=== PATIENT | female | born 1960 | race Caucasian/White ===

== ENCOUNTER → 2016-05-01 | Outpatient (CLI) | payer BC ==
[2006-03-06 07:39] VITALS: TEMP 98.4
[~2016-05-01] MED LIST: ASPIR-LOW81 MG PO; LIPITOR20 MG PO
== END ==
LOC: MC.RAD 11:17
DX: Z12.31 Encounter for screening mammogram for malignant neoplasm of breast (principal)

== ENCOUNTER → 2016-07-22 | Outpatient (CLI) | payer BC ==
[2006-03-06 07:39] VITALS: TEMP 98.4
== END ==
LOC: COL.RAD 13:18
DX: M25.551 Pain in right hip (principal); S43.431A Superior glenoid labrum lesion of right shoulder, initial encounter
CPT/HCPCS: A9585; Q9967

== ENCOUNTER → 2017-10-22 | Outpatient (CLI) | payer BC ==
[2006-03-06 07:39] VITALS: TEMP 98.4
== END ==
LOC: MC.RAD 15:51
DX: Z12.31 Encounter for screening mammogram for malignant neoplasm of breast (principal)

== ENCOUNTER → 2018-10-25 | Outpatient (CLI) | payer BC ==
[2006-03-06 07:39] VITALS: TEMP 98.4
== END ==
LOC: MC.RAD 11:30
DX: Z12.31 Encounter for screening mammogram for malignant neoplasm of breast (principal)

== ENCOUNTER → 2019-10-27 | Outpatient (CLI) | payer BC ==
[2006-03-06 07:39] VITALS: TEMP 98.4
== END ==
LOC: MC.RAD 11:35
DX: Z12.31 Encounter for screening mammogram for malignant neoplasm of breast (principal); N63.10 Unspecified lump in the right breast, unspecified quadrant

== ENCOUNTER → 2019-11-01 | Outpatient (CLI) | payer BC ==
[2006-03-06 07:39] VITALS: TEMP 98.4
== END ==
LOC: MC.RAD 14:22
DX: N60.01 Solitary cyst of right breast (principal)

== ENCOUNTER → 2020-12-18 | Outpatient (CLI) | payer BC ==
[2006-03-06 07:39] VITALS: TEMP 98.4
== END ==
LOC: MC.RAD 07:45
DX: Z12.31 Encounter for screening mammogram for malignant neoplasm of breast (principal)

== ENCOUNTER 2022-07-29 20:20 | Emergency (ER) | payer OTHER ==
[~2022-07-29] VITALS: Ht 175.3 cm; Wt 100.0 kg
[2022-07-29 21:29] LABS: BASO % 0.3 % (0.0-2.0); EOS # 0.1 K/mm3 (0.0-0.7); EOS % 0.8 % (0.0-4.0); GRAN # 7.1 K/mm3 (1.4-6.5); HEMATOCRIT 41.7 % (37.0-47.0); HEMOGLOBIN 14.1 g/dl (12.5-16.0); LYMPH # 1.9 K/mm3 (1.2-3.4); LYMPH % 19.4 % (20.0-51.0); MEAN CELL VOLUME 89 fl (80.0-100.0); MEAN CORPUSCULAR HEMOGLOBIN 30 pg (27-31); MEAN CORPUSCULAR HGB CONC 34 g/dl (33.0-37.0); MEAN PLATELET VOLUME 10.5 fl (7.4-10.4); MONO # 0.8 K/mm3 (0.1-0.6); MONO % 7.5 % (1.7-9.3); PLATELET COUNT 230 K/mm3 (130-400); RED BLOOD COUNT 4.68 M/mm3 (4.10-5.30); REDCELL DISTRIBUTION WIDTH-CV 12.4 % (11.5-14.5)
[2022-07-29 21:49] LABS: ALANINE AMINOTRANSFERASE 24 U/L (0-55); ALBUMIN 3.4 gm/dL (3.4-4.8); ALKALINE PHOSPHATASE 82 U/L (40-150); ANION GAP 13 mmol/L (7-16); AST,SGOT 21 U/L (5-34); BILIRUBIN,TOTAL 0.4 mg/dL (0.2-1.2); BLOOD UREA NITROGEN 19 mg/dL (10-20); CALCIUM 9.3 mg/dL (8.4-10.2); CARBON DIOXIDE 24 mmol/L (23-31); CHLORIDE 104 mmol/L (98-107); CREATININE, serum 0.94 mg/dL (0.57-1.11); GLUCOSE 141 mg/dL (70-99); POTASSIUM 4.1 mmol/L (3.5-4.5); SODIUM 141 mmol/L (136-145); TOTAL PROTEIN 6.5 gm/dL (6.2-8.1)
[2022-07-29 22:01] LABS: TROPONIN-I < 0.010 ng/mL (0.00-0.033)
[2022-07-30] MEDS ORDERED: ZOFRAN ODT4 MG PO (00:23)
[2022-07-30 00:31] VITALS: BP 144/79; PULSE 75; TEMP 98.2
== END 2022-07-30 00:31 | disposition home or self-care (01) ==
LOC: COL.ER 20:20
PROVIDERS: Family Medicine
DX: R55 Syncope and collapse (principal); R11.2 Nausea with vomiting, unspecified; R42 Dizziness and giddiness
CPT/HCPCS: J2405; J7120; Q9967

== ENCOUNTER → 2023-05-01 | Outpatient (CLI) | payer OTHER ==
[2006-03-06 07:39] VITALS: BP 141/84; PULSE 71; TEMP 98.4
[~2023-05-01] MED LIST changes: +ZOFRAN ODT4 MG PO
== END ==
LOC: MC.RAD 07:29
DX: Z12.31 Encounter for screening mammogram for malignant neoplasm of breast (principal)